=== PATIENT | female | born 1960 | race Caucasian/White ===

== ENCOUNTER 2016-04-17 07:17 | Emergency (ER) | payer OTHER ==
[~2016-04-17] VITALS: Ht 160 cm; Wt 60.0 kg
[2016-04-17] VITALS (7 sets, daily range): BP systolic 73–89; BP diastolic 47–59; PULSE 101–110; RESP 14–16; O2SAT 86–99
[~2016-04-17 07:17] MED LIST: FOLI5CAP PO; FURO1TAB62 PO; GABA300C5 PO; IBUP400T20 PO; LORA2TAB7 PO; MONT10TA2 PO; MULT-135 PO; OXYC-395 PO; POTA10TA8 PO; PROC10TA PO; SERT-129 PO
[2016-04-17] MEDS ORDERED: SODIUM CHLOR 0.9% 1000 ML INJ 1,000 ML IV ONE (07:30)
[2016-04-17] MEDS ORDERED: LORazepam 2 MG/ML VIAL IV PUSH ONE (07:30)
[2016-04-17] MEDS ORDERED: MORPHINE SULFATE 4 MG/ML INJ IV ONE (07:30)
--- NOTE | 2016-04-17 07:39 | PD ---
HPI Chief Complaint: Respiratory Symptoms Time Seen by Provider: 07:27 Travel History International Travel<30 days: No Contact w/Intl Traveler<30days: No Traveled to known affect area: No History of Present Illness HPI This is a 55-year-old female with history of end-stage lung cancer, who is in hospice, who presents from home after she was found on the floor unresponsive. According to the paramedics, when they arrived her sats were in the 40s. The also check to be GI in that was 43. She has no history of diabetes mellitus according to the medics. Patient is unable to give history secondary to her obtunded status. PFSH Past Medical History Hx Anticoagulant Therapy: No Asthma: No Autoimmune Disease: No Blood Disorders: No Anxiety: No Depression: Yes Heart Rhythm Problems: No Cancer: Yes (LUNG, BREAST) Cardiovascular Problems: Yes High Cholesterol: No Chemotherapy: Yes (LUNG CA) Chest Pain: Yes Congestive Heart Failure: Yes COPD: No Diabetes: No Diminished Hearing: No Endocrine: No Gastrointestinal Disorders: No Genitourinary: No Headaches: Yes Hepatitis: No Hiatal Hernia: No Hypertension: Yes Immune Disorder: No Implanted Vascular Access Dvce: Yes (PORT ON R SIDE) Musculoskeletal: No Neurologic: Yes Psychiatric: Yes Reproductive: No Respiratory: Yes (EMPHYSEMA) Migraines: Yes Radiation Therapy: Yes (JULY 2015) Seizures: No Sleep Apnea: No Thyroid Disease: No ?: Not Menopausal: Yes : 1 Para: 1 Past Surgical History AICD: No Arteriovenous Shunt: No Gynecologic Surgery: Yes (HYSTERECTOMY) Hysterectomy: Yes Insulin Pump: No Joint Replacement: No Pacemaker: No Other Surgery: Yes (BREAST RECONSTRUCTION AFTER L. LUMPECTOMY FOR CANCER IN 1980) Social History Alcohol Use: No Tobacco Use: No Substance Use: No Allergies-Medications (Allergen,Severity, Reaction): Coded Allergies: No Known Allergies (Verified , 02/10/16) Reported Meds & Prescriptions Reported Meds & Active Scripts Active Reported Oxycodone (Oxycodone HCl) 10 Mg Tab 20 Mg PO Q4H PRN Lorazepam 2 Mg Tab 2 Mg PO Q6H PRN Multi Vitamin (Multiple Vitamin) 1 Tab Tab 1 Tab PO DAILY Ibuprofen 400 Mg Tab 400 Mg PO BID Prochlorperazine Maleate 10 Mg Tab 10 Mg PO Q4H PRN Singulair (Montelukast Sodium) 10 Mg Tab 10 Mg PO HS Lasix (Furosemide) 20 Mg Tab 20 Mg PO DAILY Potassium Chloride CR (Potassium Chloride) 10 Meq Tab 10 Meq PO DAILY Sertraline (Sertraline HCl) 100 Mg Tab 200 Mg PO HS Gabapentin 300 Mg Cap 300 Mg PO BID Folic Acid 5 Mg Cap 1 Mg PO DAILY Review of Systems ROS Limitations: Clinical Condition, Altered Mental Status Except as stated in HPI: all other systems reviewed are Neg Respiratory: Positive: Other (reported O2 sat of 44.) Endocrine: Positive: Other (reported blood sugar 43 by paramedics) Physical Exam Narrative GENERAL: Well-developed well-nourished female in obvious respiratory distress. SKIN: Warm and dry. HEAD: Atraumatic. Normocephalic. EYES: No scleral icterus. No injection or drainage. ENT: No nasal bleeding or discharge. Mucous membranes pink and moist. NECK: Trachea midline. No JVD. CARDIOVASCULAR: Tachycardic with no obvious murmurs appreciated. Rate was in the low 100s. RESPIRATORY: Coarse rhonchi bilaterally. GASTROINTESTINAL: Abdomen soft, non-tender, nondistended. MUSCULOSKELETAL: No obvious deformities. No clubbing. No cyanosis. No edema. There is bruising noted to her left foot at the toes. NEUROLOGICAL: Obtunded with occasional arousal. The patient would not follow commands. She was observed moving her extremities 4. Data Data Last Documented VS Vital Signs Date Time Temp Pulse Resp B/P Pulse Ox O2 Delivery O2 Flow Rate FiO2 04/17/16 09:18 101 14 73/47 86 Non-Rebreather 15 04/17/16 07:20 100 Orders Morphine Inj (Morphine Inj) (04/17/16 07:30) Lorazepam Inj (Ativan Inj) (04/17/16 07:30) Sodium Chlor 0.9% 1000 Ml Inj (Ns 1000 M (04/17/16 07:30) Complete Blood Count With Diff (04/17/16 07:39) Basic Metabolic Panel (Bmp) (04/17/16 07:39) Urinalysis - C+S If Indicated (04/17/16 07:39) Chest, Single Ap (04/17/16 07:39) Protein Corrected Calcium(Pcc) (04/17/16 07:47) Electrocardiogram (04/17/16 ) Labs Laboratory Tests Test 04/17/16 07:47 White Blood Count 16.5 TH/MM3 Red Blood Count 2.72 MIL/MM3 Hemoglobin 8.4 GM/DL Hematocrit 27.2 % Mean Corpuscular Volume 99.9 FL Mean Corpuscular Hemoglobin 30.8 PG Mean Corpuscular Hemoglobin 30.8 % Concent Red Cell Distribution Width 17.7 % Platelet Count 237 TH/MM3 Mean Platelet Volume 8.1 FL Neutrophils (%) (Auto) 88.0 % Lymphocytes (%) (Auto) 9.1 % Monocytes (%) (Auto) 2.6 % Eosinophils (%) (Auto) 0.1 % Basophils (%) (Auto) 0.2 % Neutrophils # (Auto) 14.5 TH/MM3 Lymphocytes # (Auto) 1.5 TH/MM3 Monocytes # (Auto) 0.4 TH/MM3 Eosinophils # (Auto) 0.0 TH/MM3 Basophils # (Auto) 0.0 TH/MM3 CBC Comment DIFF FINAL Differential Comment Sodium Level 142 MEQ/L Potassium Level 4.2 MEQ/L Chloride Level 105 MEQ/L Carbon Dioxide Level 20.5 MEQ/L Anion Gap 17 MEQ/L Blood Urea Nitrogen 28 MG/DL Creatinine 1.86 MG/DL Estimat Glomerular Filtration 28 ML/MIN Rate Random Glucose 169 MG/DL Calcium Level 7.2 MG/DL Protein Corrected Calcium 8.1 MG/DL Total Protein 5.5 GM/DL MDM Medical Decision Making Medical Screen Exam Complete: Yes Emergency Medical Condition: Yes Medical Record Reviewed: Yes Differential Diagnosis Aspiration pneumonia, pulmonary edema secondary to lung cancer, sepsis, hypoglycemic episode Narrative Course 55-year-old female with unfortunate history of end-stage cancer who is in hospice, is brought in by EMS after she was found on the floor unresponsive. The patient had an O2 sat of 40s and a blood glucose in the 40s when E [facility] arrived. They put the patient on a nonrebreather. He also initiated D10. When the patient arrived she was in respiratory distress. I discussed with both the family members and caretakers if she wished to be a DNR they wanted everything done, they stated that they did not wish for her to suffer anymore. At that point the decision was to give her comfort care only. We did have hospice come in and arranged to have her transferred to the hospice care center. The patient was given 2 mg of morphine and 1 mg of Ativan. Her O2 sats started to dwindle from the 90s into the 80s. She was also hypotensive when she arrived and continued hypotensive. While awaiting for hospice transport, the patient became apneic and bradycardia down to asystole. She was pronounced by this physician at 12:56 PM. Diagnosis Primary Impression: acute cardiopulmonary arrest Additional Impressions: bronchogenic cancer of the bilateral lungs Cardiomegaly Aortic stenosis Disposition: 20 Condition: Rosalio Sheikh MD Apr 17, 2016 07:39
--- NOTE | 2016-04-17 08:06 | RADRPT ---
EXAM DATE/TIME: 04/17/2016 07:40 [facility] COMPARISON: CHEST SINGLE AP, November 14, 2015, 14:48. INDICATIONS : Altered mental status. Respiratory distress. MEDICAL HISTORY : Carcinoma, lung. Carcinoma, breast. Emphysema. SURGICAL HISTORY : Hysterectomy. Mastectomy with breast implants ENCOUNTER: Initial ACUITY: 1 day PAIN SCORE: Non-responsive. LOCATION: Bilateral chest FINDINGS: Right chest port is present in good position. There is diffuse coarse interstitial and alveolar paren chymal opacities, mainly in the lower lung zones. Cardiac silhouette is largely obscured by the infil trates. No significant effusion is suspected. CONCLUSION: Diffuse bilateral infiltrates Gaudencio Aguilar MD on April 17, 2016 at 8:04 Board Certified Radiologist. This report was verified electronically.
[2016-04-17 08:13] LABS: AUTOMATED NEUTROPHIL # 14.5 TH/MM3 (1.8-7.7); BASOPHIL % 0.2 % (0.0-2.0); EOSINOPHIL % 0.1 % (0.0-4.0); HEMATOCRIT 27.2 % (35.0-46.0); LYMPH % 9.1 % (9.0-44.0); LYMPHOCYTE # 1.5 TH/MM3 (1.0-4.8); MEAN CELL VOLUME 99.9 FL (80.0-100.0); MEAN CORPUSCULAR HEMOGLOBIN 30.8 PG (27.0-34.0); MEAN CORPUSCULAR HGB CONC 30.8 % (32.0-36.0); MONO % 2.6 % (0.0-8.0); PLATELET COUNT 237 TH/MM3 (150-450); RED BLOOD COUNT 2.72 MIL/MM3 (4.00-5.30); RED CELL DISTRIBUTION WIDTH 17.7 % (11.6-17.2); WHITE BLOOD COUNT 16.5 TH/MM3 (4.0-11.0)
[2016-04-17 08:15] LABS: HEMO FLAGS DIFF FINAL
[2016-04-17 08:26] LABS: BICARBONATE 20.5 MEQ/L (21.0-32.0); POTASSIUM 4.2 MEQ/L (3.5-5.1)
[2016-04-17 08:37] LABS: CALCIUM-PROTEIN CORRECTED 8.1 MG/DL (8.5-10.1)
--- NOTE | 2016-04-17 18:28 | EKG ---
Date Performed: 04/17/2016 Time Performed: 07:28:09 PTAGE: 55 years EKG: ATRIAL FLUTTER/TACHYCARDIA WITH RAPID VENTRICULAR RESPONSE ST DEVIATION AND MODERATE T-WAVE ABNORMALITY, CONSIDER LATERAL ISCHEMIA ST DEVIATION AND MODERATE T-WAVE ABNORMALITY, CONSIDER INFERI OR ISCHEMIA ABNORMAL ECG PREVIOUS TRACING : 04/22/2011 08.09 DOCTOR: Gene Abreu Interpretating Date/Time 04/17/2016 18:27:03
== END 2016-04-17 16:21 | disposition expired ==
LOC: NEPC 07:17
DX: I46.9 Cardiac arrest, cause unspecified (principal); C34.92 Malignant neoplasm of unspecified part of left bronchus or lung; C34.91 Malignant neoplasm of unspecified part of right bronchus or lung; I51.7 Cardiomegaly; I35.0 Nonrheumatic aortic (valve) stenosis
CPT/HCPCS: 71010; 80048; 84155; 85025; 93005; 96374; 96375; 99285; J2060; J2270; J7030